=== PATIENT | female | born 1965 | race Caucasian/White ===

== ENCOUNTER 2021-02-15 18:27 | Emergency (ER) | payer BC ==
[~2021-02-15] VITALS: Ht 170.2 cm; Wt 77.0 kg
[2021-02-15 19:14] LABS: BILIRUBIN,URINE NEGATIVE (NEG); CLARITY,URINE CLEAR; COLOR,URINE YELLOW; NITRITE,URINE NEGATIVE (NEG); PROTEIN,URINE NEGATIVE (NEG-TRACE)
[2021-02-15 19:22] LABS: BACTERIA,URINE 0 /HPF (0-FEW); RBC,URINE OCC /HPF (0-2); WBC,URINE 20-40 /HPF (0-4)
[2021-02-15 19:49] LABS: BASO # 0.1 x10^3/uL (0.0-0.2); BASO % 1 % (0-3); EOS % 1 % (0-3); HEMATOCRIT 37.3 % (36.0-47.0); LYMPH # 1.5 x10^3/uL (1.0-4.8); LYMPH % 24 % (24-48); MEAN CORPUSCULAR HEMOGLOBIN 31 pg (25-35); MEAN CORPUSCULAR HGB CONC 35 g/dL (31-37); MEAN CORPUSCULAR VOLUME 88 fL (79-100); MONO # 0.4 x10^3/uL (0.0-1.1); MONO % 6 % (0-9); NEUT # 4.5 x10^3/uL (1.8-7.7); NEUT % 69 % (31-73); PLATELET COUNT 229 x10^3/uL (140-400); RED BLOOD COUNT 4.24 x10^6/uL (3.50-5.40); RED CELL DISTRIBUTION WIDTH 14.6 % (11.5-14.5); WHITE BLOOD COUNT 6.5 x10^3/uL (4.0-11.0)
[2021-02-15 19:58] LABS: CALCIUM 9.1 mg/dL (8.5-10.1); CREATININE 0.9 mg/dL (0.6-1.0); POTASSIUM 3.8 mmol/L (3.5-5.1)
[2021-02-15] MEDS ORDERED: ONDANSETRON PF 4 MG/2 ML VIAL. IVP ONE ×2 (20:00→23:00)
[2021-02-15] MEDS ORDERED: fentaNYL PF VIAL 100 MCG/2 ML VIAL IVP ONE ×2 (20:00→21:30)
[2021-02-15] MEDS ORDERED: IV NORMAL SALINE 1000ML BAG 1,000 ML IV SCH (20:00)
--- NOTE | 2021-02-15 20:00 | PHYS DOC ---
Past Medical History Past Medical History: Hypertension (MERRY MADRIGAL FRAMEWORK DEVELOPER) Past Surgical History: Gastric Bypass (MERRY MADRIGAL FRAMEWORK DEVELOPER) Smoking Status: Former Smoker Alcohol Use: Rarely (MERRY MADRIGAL FRAMEWORK DEVELOPER) General Adult EDM: Chief Complaint: ABDOMINAL PAIN HPI: HPI: Patient is a 55 year old female who presents with states today she began having dry heaves, nausea, bilateral flank stabbing pain and stabbing epigastric pain. She states she is also having chills. She states that she did go kayaking yesterday and thinks that some of this is musculoskeletal. She states the pain will shoot across her upper epigastric area. Patient denies chest pain, shortness of breath, fever, diarrhea, dizziness, headache, cough, focal weakness, body aches. Patient's history was like gas sleeve 2 years ago but it had to be revised to a bypass 1 year ago. She also has a history of a cholecystectomy and a hysterectomy. Patient rates her pain at a 10 out of 10. (MERRY MADRIGAL FRAMEWORK DEVELOPER) Review of Systems: Review of Systems: Constitutional: Denies fever or +chills. [] Eyes: Denies change in visual acuity. [] HENT: Denies nasal congestion or sore throat. [] Respiratory: Denies cough or shortness of breath. [] Cardiovascular: Denies chest pain or edema. [] GI: + abdominal pain, +nausea, +vomiting, denies bloody stools or diarrhea. [] : Denies dysuria. [] Musculoskeletal: + Bilateral flank back pain or joint pain. [] Integument: Denies rash. [] Neurologic: Denies headache, focal weakness or sensory changes. [] Endocrine: Denies polyuria or polydipsia. [] Lymphatic: Denies swollen glands. [] Psychiatric: Denies depression or anxiety. [] (MERRY MADRIGAL FRAMEWORK DEVELOPER) Heart Score: C/O Chest Pain: No Risk Factors: Risk Factors: DM, Current or recent (<one month) smoker, HTN, HLP, family history of CAD, obesity. Risk Scores: Score 0 - 3: 2.5% MACE over next 6 weeks - Discharge Home Score 4 - 6: 20.3% MACE over next 6 weeks - Admit for Clinical Observation Score 7 - 10: 72.7% MACE over next 6 weeks - Early Invasive Strategies (MERRY MADRIGAL APRN) Current Medications: Current Medications Medications (Trade) Dose Ordered Sig/Gino Start Time Stop Time Status Last Admin Dose Admin Fentanyl Citrate (Fentanyl 2ml Vial) 50 mcg 1X ONCE 02/15/21 20:00 02/15/21 20:01 Ondansetron HCl (Zofran) 4 mg 1X ONCE 02/15/21 20:00 02/15/21 20:01 Sodium Chloride 1,000 ml @ 1,000 mls/hr Q1H 02/15/21 20:00 02/15/21 20:59 (MERRY MADRIGAL APRN) Allergies: Allergies: Allergies Coded Allergies Type Severity Reaction Last Updated Verified Sulfa (Sulfonamide Antibiotics) Allergy Intermediate 02/15/21 Yes morphine Allergy Intermediate 02/15/21 Yes (MERRY MADRIGAL APRN) Physical Exam: PE: Constitutional: Well developed, well nourished, no acute distress, non-toxic appearance. [] HENT: Normocephalic, atraumatic, bilateral external ears normal, oropharynx moist, no oral exudates, nose normal. [] Eyes: PERRLA, EOMI, conjunctiva normal, no discharge. [] Neck: Normal range of motion, no tenderness, supple, no stridor. [] Cardiovascular:Heart rate regular rhythm, no murmur [] Lungs & Thorax: Bilateral breath sounds clear to auscultation [] Abdomen: Bowel sounds normal, soft, epigastric tenderness, no masses, no pulsatile masses. [] Skin: Warm, dry, no erythema, no rash. [] Back: No tenderness, bilateral CVA tenderness. [] Extremities: No tenderness, no cyanosis, no clubbing, ROM intact, no edema. [] Neurologic: Alert and oriented X 3, normal motor function, normal sensory function, no focal deficits noted. [] Psychologic: Affect normal, judgement normal, mood normal. [] (MERRY MADRIGAL APRN) Current Patient Data: Labs: Laboratory Tests Test 02/15/21 18:35 02/15/21 19:30 Urine Collection Type Unknown Urine Color Yellow Urine Clarity Clear Urine pH 7.0 (<5.0-8.0) Urine Specific [place] >=1.030 (1.000-1.030) Urine Protein Negative mg/dL (NEG-TRACE) Urine Glucose (UA) Negative mg/dL (NEG) Urine Ketones (Stick) 15 mg/dL (NEG) Urine Blood Trace (NEG) Urine Nitrite Negative (NEG) Urine Bilirubin Negative (NEG) Urine Urobilinogen Dipstick 1.0 mg/dL (0.2 mg/dL) Urine Leukocyte Esterase Small (NEG) Urine RBC Occ /HPF (0-2) Urine WBC 20-40 /HPF (0-4) Urine Squamous Epithelial Cells Few /LPF Urine Bacteria 0 /HPF (0-FEW) Urine Mucus Mod /LPF White Blood Count 6.5 x10^3/uL (4.0-11.0) Red Blood Count 4.24 x10^6/uL (3.50-5.40) Hemoglobin 13.0 g/dL (12.0-15.5) Hematocrit 37.3 % (36.0-47.0) Mean Corpuscular Volume 88 fL (79-100) Mean Corpuscular Hemoglobin 31 pg (25-35) Mean Corpuscular Hemoglobin Concent 35 g/dL (31-37) Red Cell Distribution Width 14.6 % (11.5-14.5) H Platelet Count 229 x10^3/uL (140-400) Neutrophils (%) (Auto) 69 % (31-73) Lymphocytes (%) (Auto) 24 % (24-48) Monocytes (%) (Auto) 6 % (0-9) Eosinophils (%) (Auto) 1 % (0-3) Basophils (%) (Auto) 1 % (0-3) Neutrophils # (Auto) 4.5 x10^3/uL (1.8-7.7) Lymphocytes # (Auto) 1.5 x10^3/uL (1.0-4.8) Monocytes # (Auto) 0.4 x10^3/uL (0.0-1.1) Eosinophils # (Auto) 0.0 x10^3/uL (0.0-0.7) Basophils # (Auto) 0.1 x10^3/uL (0.0-0.2) Laboratory Tests 02/15/21 19:30 Vital Signs: Vital Signs Date Time Temp Pulse Resp B/P (MAP) Pulse Ox O2 Delivery O2 Flow Rate FiO2 02/15/21 19:10 98.5 64 20 134/68 (90) 100 Room Air 98.5 (MERRY MADRIGAL APRN) EKG: EK and read by Dr. Gallo as a sinus rhythm and no STEMI (MERRY MADRIGAL APRN) Radiology/Procedures: Radiology/Procedures: [] Impression: [facility] [address] [place] [address] IMAGING REPORT Signed PATIENT: SHAQ GAGNONCCOUNT: [id number] : 1965 LOCATION: ER AGE: 55 SEX: F EXAM STATUS: REG ER ORD. PHYSICIAN: MERRY MADRIGAL APRN REASON: ABDOMINAL PAIN AND TENDERNESS, N/V, omni 300 75 ml iv PROCEDURE: CT ABD PELV W/ IV CONTRST ONLY Exam: CT of abdomen and pelvis with contrast INDICATION: Abdominal pain and tenderness TECHNIQUE: Sequential axial images through the abdomen and pelvis obtained following the administration of 75 mL of Omni 350 IV contrast. Sagittal and coronal reformatted images were reconstructed from the axial data and reviewed. Exposure: One or more of the following in the visualized dose reduction techniques were utilized for this examination: 1. Automated exposure control 2. Adjustment of the MA and/or KV according to patient size 3. Use of iterative of reconstructive technique Comparisons: None FINDINGS: Heart size is normal. No pericardial effusion. Visualized lung bases are clear. No pleural effusion. There is a six-month nodule at the left lower lobe series 2 image 5. Liver, spleen, pancreas and adrenals are unremarkable. Gallbladder surgically absent. No perinephric inflammation or hydronephrosis. No renal or ureteral calculi are identified. Bladder is partially distended and not well evaluated. Uterus is absent. No abnormal adnexal mass. Postoperative changes of gastric bypass. There is twisting of the mesenteric vessels noted with engorgement of the venous vessels. There is associated stranding in the mesenteric root. Remainder of the large and small bowel is unremarkable. No free intra-abdominal air or fluid. Abdominal aorta has a normal course and caliber. Bowel vasculature is patent. No enlarged intra-abdominal lymph nodes are identified. No suspicious osseous lesions or acute fractures. IMPRESSION: 1. Findings concerning for internal hernia with twisting at the mesenteric root and engorgement of the more downstream mesenteric venous vasculature. Probable cut off of the mesenteric veins at the area of twisting 2. Postoperative changes of Wily-en-Y gastric bypass. FOR INTERNAL CODING PURPOSES Critical result: Findings discussed with Melba at 02/15/2021 8:35 PM. RESULT CODE: (C) Electronically signed by: Deb Tavarez MD (02/15/2021 8:37 PM) DESMOND DICTATED and SIGNED BY: DEB TAVAREZ MD DATE: 02/15/[id number] 0 [facility] [address] [place] [address] IMAGING REPORT Signed PATIENT: SHAQ GAGNONCCOUNT: [id number] : 1965 LOCATION: ER AGE: 55 SEX: F EXAM STATUS: REG ER ORD. PHYSICIAN: MERRY MADRIGAL APRN REASON: ABDOMINAL PAIN PROCEDURE: PORTABLE CHEST 1V Exam: Chest one view INDICATION: Abdominal pain TECHNIQUE: Frontal view of the chest Comparisons: None FINDINGS: The cardiomediastinal silhouette and pulmonary vessels are within normal limits. The lung and pleural spaces are clear. IMPRESSION: No acute cardiopulmonary process. Electronically signed by: Deb Tavarez MD (02/15/2021 8:17 PM) DESMOND DICTATED and SIGNED BY: DEB TAVAREZ MD DATE: 02/15/[id number] 0 (MERRY MADRIGAL APRN) Course & Med Decision Making: Course & Med Decision Making Pertinent Labs and Imaging studies reviewed. (See chart for details) See HPI. Alert and oriented x4. Ambulatory with a steady gait. Skin pink warm and dry. Patient is shivering. Epigastric tenderness and bilateral CVA tenderness. Abdomen is otherwise soft and nontender. Speaks in full clear se ntences. Patient has received a total of 100meq fentanyl, 4mg Zofran and 1 mg Dilaudid. I have spoken to Dr. Gutiérrez who states that he does not feel comfortable doing surgery on the patient due to her having a bypass and this likely having to do with her gastric bypass. [facility] called [facility] her [facility] was done by a Dr. Quinones. [facility] states that they do not have the bed for the patient. I spoke to Dr. 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 He suggested that I try . 2219: [facility] accepted patient. Patient accepted by Dr Aldana. [] (MERRY MADRIGAL APRN) Course & Med Decision Making Patients Care and treatment plan provided by ER Nurse Practitioner. I was available for consult. Patient's chart reviewed. (ARLEN GALLO DO) Laura Disclaimer: Laura Disclaimer: This electronic medical record was generated, in whole or in part, using a voice recognition dictation system. (MERRY MADRIGAL APRN) Departure Departure Impression: Primary Impression: Internal hernia Disposition: 02 [facility] TER[facility] ([facility]) Admitting Physician: RAMONA (MERRY MADRIGAL APRN) Condition: STABLE MERRY MADRIGAL APRN Feb 15, 2021 20:00 ARLEN GALLO DO Feb 17, 2021 05:00
[2021-02-15 20:04] LABS: ALBUMIN/GLOBULIN RATIO 1.3 (1.0-1.7); TOTAL BILIRUBIN 0.7 mg/dL (0.2-1.0); TOTAL PROTEIN 7.1 g/dL (6.4-8.2)
[2021-02-15] MEDS ORDERED: CONTRAST GIVEN. MC PRN (20:15)
--- NOTE | 2021-02-15 20:20 | RAD ---
Exam: Chest one view INDICATION: Abdominal pain TECHNIQUE: Frontal view of the chest Comparisons: None FINDINGS: The cardiomediastinal silhouette and pulmonary vessels are within normal limits. The lung and pleural spaces are clear. IMPRESSION: No acute cardiopulmonary process. Electronically signed by: Deb Guzman MD (02/15/2021 8:17 PM) DESMOND
[2021-02-15] MEDS ORDERED: IOHEXOL 300 MG/ML 100ML VIAL. IV ONE (20:30)
--- NOTE | 2021-02-15 20:39 | RAD ---
Exam: CT of abdomen and pelvis with contrast INDICATION: Abdominal pain and tenderness TECHNIQUE: Sequential axial images through the abdomen and pelvis obtained following the administrati on of 75 mL of Omni 350 IV contrast. Sagittal and coronal reformatted images were reconstructed from the axial data and reviewed. Exposure: One or more of the following in the visualized dose reduction techniques were utilized for this examination: 1. Automated exposure control 2. Adjustment of the MA and/or KV according to patient size 3. Use of iterative of reconstructive technique Comparisons: None FINDINGS: Heart size is normal. No pericardial effusion. Visualized lung bases are clear. No pleural effusion. There is a six-month nodule at the left lower lobe series 2 image 5. Liver, spleen, pancreas and adrenals are unremarkable. Gallbladder surgically absent. No perinephric inflammation or hydronephrosis. No renal or ureteral calculi are identified. Bladder is partially distended and not well evaluated. Uterus is absent. No abnormal adnexal mass. Postoperative changes of gastric bypass. There is twisting of the mesenteric vessels noted with engor gement of the venous vessels. There is associated stranding in the mesenteric root. Remainder of the large and small bowel is unremarkable. No free intra-abdominal air or fluid. Abdominal aorta has a normal course and caliber. Bowel vasculature is patent. No enlarged intra-abdominal lymph nodes are identified. No suspicious osseous lesions or acute fractures. IMPRESSION: 1. Findings concerning for internal hernia with twisting at the mesenteric root and engorgement of t he more downstream mesenteric venous vasculature. Probable cut off of the mesenteric veins at the are a of twisting 2. Postoperative changes of Wily-en-Y gastric bypass. FOR INTERNAL CODING PURPOSES Critical result: Findings discussed with Melba at 02/15/2021 8:35 PM. RESULT CODE: (C) Electronically signed by: Deb Guzman MD (02/15/2021 8:37 PM) [facility]ENTERJAIM[facility]
[2021-02-15 21:22] LABS: PROTHROMBIN TIME PATIENT 12.9 SEC (11.7-14.0)
[2021-02-15] MEDS ORDERED: HYDROmorphone 2 MG/ML VIAL IVP ONE ×3 (22:00→23:00)
[2021-02-15 22:36] VITALS: BP 118/60
--- NOTE | 2021-02-16 00:23 | EKG ---
[facility] [address] [place] [address] Test Date: 2021-02-15 Test Time: 19:19:07 Pat Name: PATRICIA GAGNON Department: Room: Gender: F [employer] Mixer: : 1965 Requested By: MERRY MADRIGAL Order Number: [id number] Reading MD: Measurements Intervals [place] Rate: 62 P: CA: QRS: -11 QRSD: 78 T: 32 QT: 418 QTc: 427 Interpretive Statements IRREGULAR RHYTHM, NO P-WAVE FOUND LEFTWARD AXIS QRS(T) CONTOUR ABNORMALITY CONSIDER ANTEROLATERAL MYOCARDIAL DAMAGE POSSIBLY ABNORMAL ECG RI6.01 No previous ECG available for comparison
== END 2021-02-15 23:05 | disposition short-term general hospital (02) ==
LOC: ER 18:27
DX: K46.9 Unspecified abdominal hernia without obstruction or gangrene (principal); Z20.822 Contact with and (suspected) exposure to COVID-19; R11.2 Nausea with vomiting, unspecified; I10 Essential (primary) hypertension; Z87.891 Personal history of nicotine dependence; Z98.84 Bariatric surgery status; Z88.2 Allergy status to sulfonamides; Z88.5 Allergy status to narcotic agent
CPT/HCPCS: 36415; 71045; 74177; 80053; 81001; 83605; 83690; 84484; 85025; 85610; 85730; 87086; 87426; 93005; 96361; 96374; 96375; 96376; 99285; J1170; J2405; J3010; J7030; Q9967; U0003